=== PATIENT | female | born 1995 | race Caucasian/White ===

== ENCOUNTER → 2016-10-30 | Outpatient (CLI) | payer SELFPAY ==
--- OUTSIDE RECORDS SUMMARY | 2016-10-30 07:44 | XMS REPORT ---
Author Author ALEJANDRINA SUMNER Organization e[employer] Address Unknown Phone Unavailable Care Team Providers Care Amalgamator Name Role Phone ALEJANDRINA SUMNER CP Unavailable Allergies, Adverse Reactions, Alerts Substance Reaction Event Type Tomato anaphylaxis Non Drug Allergy Problems Problem Type Condition Code Onset Dates Condition Status Assessment Anxiety F41.9 Active Assessment Shortness of breath R06.02 Active Problem Unspecified viral infection, in conditions classified elsewhere and of unspecified site 079.99 Active Problem Unspecified infective otitis externa 380.10 Active Problem Other infective acute otitis externa of left ear H60.392 Active Problem Health examination of defined subpopulation V70.5 Active Assessment Tympanic membrane perforation, left H72.92 Active Problem Personal history of allergy to other foods V15.05 Active Problem Dysfunction of Eustachian tube 381.81 Active Medications Medication Code System Code Instructions Start Date End Date Status Dosage Lexapro [facility] [address]-69 20 mg Orally Once a day January 31, 2016 1 tablet BusPIRone HCl [facility] [address]-32 5 mg Orally 2 times a day March 13, 2016 3 tablets ProAir HFA [facility] [address]-15 108 (90 Base) MCG/ACT Inhalation every 4 hrs May 25, 2016 2 puffs as needed Nexplanon [facility] [address]-42 68 MG Subcutaneous not defined Procedures Procedure Coding System Code Date Office Visit, Est Pt., Level 3 CPT-4 32623 May 25, 2016 Vital Signs Date/Time: May 25, 2016 Cardiac Monitoring Heart Rate 86 bpm Weight 388.2 lbs Height 64 in BMI 66.63 Index Blood Pressure Diastolic 80 mmHg Blood Pressure Systolic 112 mmHg Results No Known Results Summary Purpose eClinicalWorks Submission
== END ==
LOC: RAD 07:41
PROVIDERS: ATTEND Nurse Practitioner Family
DX: R10.11 Right upper quadrant pain (principal); R19.8 Other specified symptoms and signs involving the digestive system and abdomen

== ENCOUNTER → 2016-10-31 | Outpatient (CLI) | payer OTHER ==
--- NOTE | 2016-10-31 09:26 | Diagnostic Imaging Report ---
PROCEDURE: US Gallbladder. TECHNIQUE: Multiple real-time grayscale images were obtained over the right upper quadrant in various projections. INDICATION: Right upper quadrant abdominal pain. FINDINGS: The liver has increased echogenicity suggesting fatty infiltration. The gallbladder is clear with no stones or wall thickening. The common duct is not dilated. The right kidney appears normal. There is no ascites. IMPRESSION: Hepatic steatosis. Negative gallbladder. Dictated by: Dictated on workstation # [id number]
== END ==
LOC: RAD 08:21
PROVIDERS: ATTEND Nurse Practitioner Family
DX: R10.11 Right upper quadrant pain (principal); R19.8 Other specified symptoms and signs involving the digestive system and abdomen
CPT/HCPCS: 76705

== ENCOUNTER 2017-06-27 09:20 | Observation (INO) | payer OTHER ==
[~2017-06-27] VITALS: Ht 165.1 cm; Wt 182.0 kg
[2017-06-27 10:09] VITALS: BP 178/102
[2017-06-27] MEDS ORDERED: AZITHROMYCIN INJECTION 500 MG in NS (IVPB) 250 ML IV NR (10:45)
[2017-06-27] MEDS ORDERED: NS IV 1000 ML 1,000 ML IV SCH (10:45)
[2017-06-27] MEDS ORDERED: cefTRIAXone INJECTION 1,000 MG in NS (IVPB) 50 ML IV SCH (10:45)
--- OUTSIDE RECORDS SUMMARY | 2017-06-27 10:54 | XMS REPORT ---
Author Author ALEJANDRINA SUMNER Organization [employer] Address Unknown Phone Unavailable Care Team Providers Care Non Destructive Evaluation Manager Name Role Phone ALEJANDRINA SUMNER CP Unavailable [...] Start Date End Date Status Dosage Lexapro [facility] [address]-16 20 mg Orally Once a day January 31, 2016 1 tablet BusPIRone HCl [facility] [address]-78 5 mg Orally 2 times a day March 13, 2016 3 tablets ProAir HFA [facility] [address]-90 108 (90 Base) MCG/ACT Inhalation every 4 hrs May 25, 2016 2 puffs as needed Nexplanon [facility] [address]-10 68 MG Subcutaneous not defined Procedures Procedure Coding System Code Date Office Visit, Est Pt., Level 3 CPT-4 52942 May 25, 2016 Vital Signs Date/Time: May 25, 2016 Cardiac Monitoring Heart Rate 86 bpm Weight 388.2 lbs Height 64 in BMI 66.63 Index Blood Pressure Diastolic 80 mmHg Blood Pressure Systolic 112 mmHg Results No Known Results Summary Purpose eClinicalWorks Submission
--- OUTSIDE RECORDS SUMMARY | 2017-06-27 10:54 | XMS REPORT ---
Author Author BRAULIO CABEZAS [facility] Address [address] [place] [address] Care Team Providers Care Watch Dial Maker Name Role Phone CABEZASBRAULIO Unavailable PROBLEMS Type Condition ICD9-CM Code [id number] Code Onset Dates Condition Status SNOMED Code Problem Mood disorder F39 Active 54851105 Problem Dysthymia F34.1 Active 80229615 Problem Mild intermittent asthma with acute exacerbation J45.21 Active 848204765 Problem Other infective acute otitis externa of left ear H60.392 Active 869303451 Problem Morbid obesity due to excess calories E66.01 Active 987802321 Problem Mild persistent asthma without complication J45.30 Active 717746042 ALLERGIES Substance Reaction Event Type Date Status Zoloft inc anxiety Drug Allergy Oct, Active Tomato anaphylaxis Non Drug Allergy Oct, Active SOCIAL HISTORY No smoking Hx information available PLAN OF CARE Activity Details Follow Up 4 Weeks Reason:dysthymia VITAL SIGNS Height 64 in 2016-10-25 Weight 401.2 lbs 2016-10-25 Temperature 98.4 degrees Fahrenheit 2016-10-25 Heart Rate 84 bpm 2016-10-25 Respiratory Rate 16 2016-10-25 BMI 68.86 kg/m2 2016-10-25 Blood pressure systolic 128 mmHg 2016-10-25 Blood pressure diastolic 72 mmHg 2016-10-25 MEDICATIONS Medication Instructions Dosage Frequency Start Date End Date Duration Status BusPIRone HCl 15 MG Orally 2 times a day 1tablets 12h Active Qvar 40 MCG/ACT Inhalation Twice a day 2 puff 12h Jun, Active ProAir HFA 108 (90 Base) MCG/ACT Inhalation every 4 hrs 2 puffs as needed 4h May, Active Cipro 500 MG Orally Twice a day 1 tablet 12h Oct, Oct, 10 day(s) Active Nexplanon 68 MG Active Clonazepam 0.5 MG Orally Twice a day as needed for panic attacks .5-1 tablet Aug, Active Venlafaxine HCl 75 MG Orally Twice a day 1 tablet with food 12h Active Ibuprofen 800 MG Orally Three times a day 1 tablet 8h 05 Apr, 2016 Active Cetirizine HCl 10 mg Orally Once a day 1 tablet 24h Sep, Active Metronidazole 500 MG Orally 3 times a day 1 tablet 8h Oct,Oct 07 days Active RESULTS No Results PROCEDURES Procedure Date Ordered Related Diagnosis Body Site Office Visit, Est Pt., Level 3 Oct 25, 2016 IMMUNIZATIONS No Known Immunizations
--- OUTSIDE RECORDS SUMMARY | 2017-06-27 10:54 | XMS REPORT ---
Author Author BRAULIO CABEZAS Organization [employer] Address Unknown Phone Unavailable Care Team Providers Care Food Analyst Name Role Phone BRAULIO CABEZAS CP Unavailable Allergies No Known Allergies Problems Problem Type Condition Code Onset Dates Condition Status Problem Unspecified viral infection, in conditions classified elsewhere and of unspecified site 079.99 Active Problem Unspecified infective otitis externa 380.10 Active Problem Other infective acute otitis externa of left ear H60.392 Active Problem Health examination of defined subpopulation V70.5 Active Problem Personal history of allergy to other foods V15.05 Active Problem Dysfunction of Eustachian tube 381.81 Active Medications Medication Code System Code Instructions Start Date End Date Status Dosage Ofloxacin [facility] [address]-37 0.3 % Otic twice a day April 24, 2016 May 04, 2016 10 drops into affected ear Results No Known Results Summary Purpose eClinicalWorks Submission
--- OUTSIDE RECORDS SUMMARY | 2017-06-27 10:54 | XMS REPORT ---
Author Author HANS CORDOBA Organization [facility] Address [address] [place] [address] Care Team Providers Care Moccasin Sewer Name Role Phone HANS CORDOBA Unavailable PROBLEMS Type Condition ICD9-CM Code [id number] Code Onset Dates Condition Status SNOMED Code Problem Mood disorder F39 Active 67298698 Problem Dysthymia F34.1 Active 04660762 Problem Mild intermittent asthma with acute exacerbation J45.21 Active 387118597 Problem Other infective acute otitis externa of left ear H60.392 Active 786444054 Problem Morbid obesity due to excess calories E66.01 Active 101588430 Problem Mild persistent asthma without complication J45.30 Active 031341881 ALLERGIES Substance Reaction Event Type Date Status Zoloft inc anxiety Drug Allergy Sep, Active Tomato anaphylaxis Non Drug Allergy Sep, Active SOCIAL HISTORY No smoking Hx information available PLAN OF CARE Activity Details Follow Up 2 - 3 Days Reason:if not improving VITAL SIGNS Height 64 in 2016-09-18 Weight 391.2 lbs 2016-09-18 Temperature 98.4 degrees Fahrenheit 2016-09-18 Heart Rate 94 bpm 2016-09-18 Respiratory Rate 20 2016-09-18 BMI 67.14 kg/m2 2016-09-18 Blood pressure systolic 120 mmHg 2016-09-18 Blood pressure diastolic 78 mmHg 2016-09-18 MEDICATIONS Medication Instructions Dosage Frequency Start Date End Date Duration Status Qvar 40 MCG/ACT Inhalation Twice a day 2 puff 12h Jun, Active ProAir HFA 108 (90 Base) MCG/ACT Inhalation every 4 hrs 2 puffs as needed 4h May, Active Cetirizine HCl 10 mg Orally Once a day 1 tablet 24h Sep, Active Venlafaxine HCl 37.5 MG Orally Twice a day 1 tablet with food 12h Aug, Active Tessalon Perles 100 MG Orally Three times a day prn at bedtime 1 capsule as needed Sep, Sep, 07 days Active Ibuprofen 800 MG Orally Three times a day 1 tablet 8h Apr, Active Lexapro 20 mg Orally Once a day 1 tablet 24h Jan, Active Clonazepam 0.5 MG Orally Twice a day as needed for panic attacks .5-1 tablet Aug, Active Nexplanon 68 MG Active BusPIRone HCl 5 mg Orally 2 times a day 3 tablets 12h Active Amoxicillin 500 MG Orally every 8 hrs 2 tablets 8h Sep, Sep, 7 days Active RESULTS No Results PROCEDURES Procedure Date Ordered Related Diagnosis Body Site Office Visit, Est Pt., Level 3 Sep 18, 2016 IMMUNIZATIONS No Known Immunizations
--- OUTSIDE RECORDS SUMMARY | 2017-06-27 10:55 | XMS REPORT ---
Author Author BRAULIO CABEZAS [facility] eClinicalWorks Address Unknown Phone Unavailable Care Team Providers Care Program Scheduler Name Role Phone BRAULIO CABEZAS CP Unavailable Allergies, Adverse Reactions, Alerts Substance Reaction Event Type Tomato anaphylaxis Non Drug Allergy Problems Problem Type Condition Code Onset Dates Condition Status Assessment Upper respiratory tract infection, unspecified type J06.9 Active Problem Other infective acute otitis externa of left ear H60.392 Active Problem Unspecified viral infection, in conditions classified elsewhere and of unspecified site 079.99 Active Problem Mild intermittent asthma with acute exacerbation J45.21 Active Problem Dysfunction of Eustachian tube 381.81 Active Problem Health examination of defined subpopulation V70.5 Active Problem Unspecified infective otitis externa 380.10 Active Problem Personal history of allergy to other foods V15.05 Active Medications Medication Code System Code Instructions Start Date End Date Status Dosage Qvar [facility] [address]-31 40 MCG/ACT Inhalation Twice a day Jun 26, 2016 2 puff Lexapro [facility] [address]-37 20 mg Orally Once a day January 31, 2016 1 tablet ProAir HFA [facility] [address]-82 108 (90 Base) MCG/ACT Inhalation every 4 hrs May 25, 2016 2 puffs as needed BusPIRone HCl [facility] [address]-69 5 mg Orally 2 times a day March 13, 2016 3 tablets Nexplanon [facility] [address]-15 68 MG Subcutaneous not defined Ibuprofen [facility] [address]-44 800 MG Orally Three times a day April 10, 2016 1 tablet Procedures Procedure Coding System Code Date STREP A ASSAY W/OPTIC CPT-4 29157 Jul 20, 2016 Office Visit, Est Pt., Level 3 CPT-4 75205 Jul 20, 2016 Vital Signs Date/Time: Jul 20, 2016 Cardiac Monitoring Heart Rate 94 bpm Weight 388.8 lbs Height 64 in BMI 66.73 Index Blood Pressure Diastolic 70 mmHg Blood Pressure Systolic 118 mmHg Results Name Result Date Reference Range Unit Abnormality Flag STREP A (IN HOUSE) ----STREP A neg [id number] ----Lot # [id number] ----Exp date [id number] Summary Purpose eClinicalWorks Submission
--- OUTSIDE RECORDS SUMMARY | 2017-06-27 10:55 | XMS REPORT ---
Author Author ALEJANDRINA SUMNER Organization [employer] Address Unknown Phone Unavailable Care Team Providers Care Radiology Specialist Name Role Phone ALEJANDRINA SUMNER CP Unavailable Allergies, Adverse Reactions, Alerts Substance Reaction Event Type Tomato anaphylaxis Non Drug Allergy Problems Problem Type Condition Code Onset Dates Condition Status Assessment Ruptured tympanic membrane, left H72.92 Active Problem Unspecified viral infection, in conditions classified elsewhere and of unspecified site 079.99 Active Problem Unspecified infective otitis externa 380.10 Active Problem Other infective acute otitis externa of left ear H60.392 Active Problem Health examination of defined subpopulation V70.5 Active Assessment Ear pain, left H92.02 Active Problem Personal history of allergy to other foods V15.05 Active Problem Dysfunction of Eustachian tube 381.81 Active Medications Medication Code System Code Instructions Start Date End Date Status Dosage Cortisporin [facility] [address]-94 3.5-69900-6 Otic 4 times a day April 10, 2016 4 drops into affected ear Nexplanon [facility] [address]-90 68 MG Subcutaneous not defined BusPIRone HCl [facility] [address]-74 5 mg Orally 2 times a day March 13, 2016 1 tablet Lexapro [facility] [address]-92 20 mg Orally Once a day January 31, 2016 1 tablet Ibuprofen [facility] [address]-90 800 MG Orally Three times a day April 10, 2016 1 tablet Amoxicillin [facility] [address]-06 500 MG Orally every 12 hrs April 17, 2016 April 27, 2016 2 tablet Procedures Procedure Coding System Code Date Office Visit, Est Pt., Level 3 CPT-4 69658 April 17, 2016 Vital Signs Date/Time: April 17, 2016 Cardiac Monitoring Heart Rate 88 bpm Weight 384.0 lbs Height 64 in BMI 65.91 Index Blood Pressure Diastolic 90 mmHg Blood Pressure Systolic 110 mmHg Results No Known Results Summary Purpose eClinicalWorks Submission
--- OUTSIDE RECORDS SUMMARY | 2017-06-27 10:55 | XMS REPORT ---
Author Author ALEJANDRINA SUMNER [facility] e[employer] Address Unknown Phone Unavailable Care Team Providers Care Furniture Rental Consultant Name Role Phone ALEJANDRINA SUMNER CP Unavailable Allergies No Known Allergies Problems Problem Type Condition Code Onset Dates Condition Status Problem Unspecified viral infection, in conditions classified elsewhere and of unspecified site 079.99 Active Problem Unspecified infective otitis externa 380.10 Active Problem Other infective acute otitis externa of left ear H60.392 Active Problem Health examination of defined subpopulation V70.5 Active Assessment Acute suppurative otitis media of left ear with spontaneous rupture of tympanic membrane, recurrence not specified H66.012 Active Problem Personal history of allergy to other foods V15.05 Active Problem Dysfunction of Eustachian tube 381.81 Active Medications No Known Medications Results No Known Results Summary Purpose eClinicalWorks Submission
--- OUTSIDE RECORDS SUMMARY | 2017-06-27 10:55 | XMS REPORT ---
Author Author ALEJANDRINA SUMNER [facility] Address [address] [place] [address] Care Team Providers Care Franchise Broker Name Role Phone ALEJANDRINA SUMNER Unavailable PROBLEMS Type Condition ICD9-CM Code GCQ43-UM Code Onset Dates Condition Status SNOMED Code Problem Health examination of defined subpopulation V70.5 Active 949893319 Problem Mild intermittent asthma with acute exacerbation J45.21 Active 320253466 Problem Other infective acute otitis externa of left ear H60.392 Active 199406839 Problem Personal history of allergy to other foods V15.05 Active 228935003 Problem Dysfunction of Eustachian tube 381.81 Active 65478409 Problem Unspecified viral infection, in conditions classified elsewhere and of unspecified site 079.99 Active 33107497 Problem Unspecified infective otitis externa 380.10 Active 74780715 ALLERGIES Unknown Allergies SOCIAL HISTORY No smoking Hx information available PLAN OF CARE VITAL SIGNS MEDICATIONS Medication Instructions Dosage Frequency Start Date End Date Duration Status Lexapro 20 mg Orally Once a day 1 tablet 24h Jan, 30 days Active RESULTS No Results PROCEDURES No Known procedures IMMUNIZATIONS No Known Immunizations
--- OUTSIDE RECORDS SUMMARY | 2017-06-27 10:55 | XMS REPORT ---
Author Author HANS CORDOBA [facility] Address [address] [place] [address] Care Team Providers Care Logistics Solution Manager Name Role Phone HANS CORDOBA Unavailable PROBLEMS Type Condition ICD9-CM Code DAH33-FY Code Onset Dates Condition Status SNOMED Code Problem Mood disorder F39 Active 57545157 Problem Dysthymia F34.1 Active 70550438 Problem Mild intermittent asthma with acute exacerbation J45.21 Active 456324347 Problem Other infective acute otitis externa of left ear H60.392 Active 091231868 Problem Morbid obesity due to excess calories E66.01 Active 950914787 Problem Mild persistent asthma without complication J45.30 Active 638211855 ALLERGIES Unknown Allergies SOCIAL HISTORY No smoking Hx information available PLAN OF CARE VITAL SIGNS MEDICATIONS Unknown Medications RESULTS Name Result Date Reference Range Ultrasound : Gallbladder 2016-10-31 PROCEDURES No Known procedures IMMUNIZATIONS No Known Immunizations
--- OUTSIDE RECORDS SUMMARY | 2017-06-27 10:55 | XMS REPORT ---
Author Author ALEJANDRINA SUMNER [facility] eClinicalWorks Address Unknown Phone Unavailable Care Team Providers Care Office Technology Professor Name Role Phone ALEJANDRINA SUMNER Unavailable Allergies No Known Allergies Problems Problem Type Condition Code Onset Dates Condition Status Problem Other infective acute otitis externa of [...] Instructions Start Date End Date Status Dosage BusPIRone HCl [facility] [address]-64 5 mg Orally 2 times a day March 13, 2016 3 tablets Results No Known Results Summary Purpose eClinicalWorks Submission
--- OUTSIDE RECORDS SUMMARY | 2017-06-27 10:55 | XMS REPORT ---
Author Author ALEJANDRINA SUMNER [facility] eClinicalWorks Address Unknown Phone Unavailable Care Team Providers Care Icing Machine Operator Name Role Phone ALEJANDRINA SUMNER CP Unavailable Allergies, Adverse Reactions, Alerts Substance Reaction Event Type Tomato anaphylaxis Non Drug Allergy Problems Problem Type Condition Code Onset Dates Condition Status Problem Unspecified infective otitis externa 380.10 Active Problem Personal history of allergy to other foods V15.05 Active Problem Unspecified viral infection, in conditions classified elsewhere and of unspecified site 079.99 Active Assessment Otitis media H66.90 Active Assessment Ear ache H92.09 Active Problem Dysfunction of Eustachian tube 381.81 Active Problem Health examination of defined subpopulation V70.5 Active Medications Medication Code System Code Instructions Start Date End Date Status Dosage ProAir HFA [facility] [address]-07 108 (90 Base) MCG/ACT Inhalation every 4 hrs, as needed only December 20, 2015 2 puffs as needed Lexapro [facility] [address]-35 20 mg Orally Once a day January 31, [address] [facility] [address]-58 68 MG Subcutaneous not defined Cipro HC [facility] [address]-82 0.2-1 % Otic Twice a day February 07, 2016 3 drops into affected ear Procedures Procedure Coding System Code Date Office Visit, Est Pt., Level 3 CPT-4 94214 February 07, 2016 Vital Signs Date/Time: February 07, 2016 Temperature 97.9 F Weight 367.4 lbs Height 64 in BMI 63.06 Index Blood Pressure Diastolic 70 mmHg Blood Pressure Systolic 116 mmHg Cardiac Monitoring Heart Rate 92 bpm Results No Known Results Summary Purpose eClinicalWorks Submission
--- OUTSIDE RECORDS SUMMARY | 2017-06-27 10:55 | XMS REPORT ---
Author Author BRAULIO CABEZAS Organization [employer] Address Unknown Phone Unavailable Care Team Providers Care Under Cutting Machine Operator Name Role Phone BRAULIO CABEZAS CP Unavailable Allergies, Adverse Reactions, Alerts Substance Reaction Event Type Tomato anaphylaxis Non Drug Allergy Problems Problem Type Condition Code Onset Dates Condition Status Problem Unspecified infective otitis externa 380.10 Active Problem Personal history of allergy to other foods V15.05 Active Problem Unspecified viral infection, in conditions classified elsewhere and of unspecified site 079.99 Active Assessment Acute recurrent maxillary sinusitis J01.01 Active Problem Dysfunction of Eustachian tube 381.81 Active Problem Health examination of defined subpopulation V70.5 Active Medications Medication Code System Code Instructions Start Date End Date Status Dosage Amoxicillin [facility] [address]-84 500 MG Orally every 12 hrs Jul 28, 2015 Aug 07, 2015 2 tablet Procedures Procedure Coding System Code Date Office Visit, Est Pt., Level 3 CPT-4 44640 Jul 28, 2015 Vital Signs Date/Time: Jul 28, 2015 Temperature 98.4 F Weight 341 lbs Height 64 in BMI 58.53 Index Blood Pressure Diastolic 80 mmHg Blood Pressure Systolic 124 mmHg Cardiac Monitoring Heart Rate 93 bpm Results No Known Results Summary Purpose eClinicalWorks Submission
--- OUTSIDE RECORDS SUMMARY | 2017-06-27 10:55 | XMS REPORT ---
Author Author BRAULIO CABEZAS Organization [employer] Address Unknown Phone Unavailable Care Team Providers Care Pediatric Genetic Counselor Name Role Phone BRAULIO CABEZAS CP Unavailable Allergies No Known Allergies Problems Problem Type Condition Code Onset Dates Condition Status Problem Unspecified infective otitis externa 380.10 Active Problem Personal history of allergy to other foods V15.05 Active Problem Unspecified viral infection, in conditions classified elsewhere and of unspecified site 079.99 Active Problem Dysfunction of Eustachian tube 381.81 Active Problem Health examination of defined subpopulation V70.5 Active Medications No Known Medications Results No Known Results Summary Purpose eClinicalWorks Submission
--- OUTSIDE RECORDS SUMMARY | 2017-06-27 10:55 | XMS REPORT ---
Author Author ALEJANDRINA SUMNER [facility] eClinicalWorks Address Unknown Phone Unavailable Care Team Providers Care Field Appraiser Name Role Phone ALEJANDRINA SUMNER CP Unavailable Allergies, Adverse Reactions, Alerts Substance Reaction Event Type Tomato anaphylaxis Non Drug Allergy Problems Problem Type Condition Code Onset Dates Condition Status Assessment Ear pain, left H92.02 Active Assessment Acute suppurative otitis media of left ear with spontaneous rupture of tympanic membrane, recurrence not specified H66.012 Active Problem Unspecified viral infection, in conditions classified elsewhere and of unspecified site 079.99 Active Problem Unspecified infective otitis externa 380.10 Active Problem Other infective acute otitis externa of left ear H60.392 Active Problem Health examination of defined subpopulation V70.5 Active Assessment Unspecified perforation of tympanic membrane, left ear H72.92 Active Problem Personal history of allergy to other foods V15.05 Active Problem Dysfunction of Eustachian tube 381.81 Active Medications Medication Code System Code Instructions Start Date End Date Status Dosage Ibuprofen [facility] [address]-59 800 MG Orally Three times a day April 10, 2016 1 tablet Lexapro [facility] [address]-30 20 mg Orally Once a day January 31, 2016 1 tablet BusPIRone HCl [facility] [address]-10 5 mg Orally 2 times a day March 13, 2016 1 tablet Nexplanon [facility] [address]-03 68 MG Subcutaneous not defined Procedures Procedure Coding System Code Date ROCEPHIN 1 GM (IM) CPT-4 J0696 May 01, 2016 THER/PROPH/DIAG INJ, SC/IM CPT-4 59592 May 01, 2016 Office Visit, Est Pt., Level 3 CPT-4 78270 May 01, 2016 TORADOL (IM) 60 MG/2ML (UP TO 15 MG) CPT-4 J1885 May 01, 2016 Vital Signs Date/Time: May 01, 2016 Cardiac Monitoring Heart Rate 88 bpm Weight 383.6 lbs Height 64 in Blood Pressure Diastolic 82 mmHg Blood Pressure Systolic 116 mmHg Results No Known Results Summary Purpose eClinicalWorks Submission
--- OUTSIDE RECORDS SUMMARY | 2017-06-27 10:55 | XMS REPORT ---
Author Author BRAULIO CABEZAS Organization [employer] Address Unknown Phone Unavailable Care Team Providers Care Supervisor Real Estate Office Name Role Phone BRAULIO CABEZAS CP Unavailable [...]
--- OUTSIDE RECORDS SUMMARY | 2017-06-27 10:55 | XMS REPORT ---
Author Author HANS CORDOBA Organization [facility] Address [address] [place] [address] Care Team Providers Care Tank Wagon Operator Name Role Phone HANS CORDOBA Unavailable PROBLEMS Type Condition ICD9-CM Code EVX16-DW Code Onset Dates Condition Status SNOMED Code Problem Mood disorder F39 Active 98293032 Problem Dysthymia F34.1 Active 26032066 Problem Mild intermittent asthma with acute exacerbation J45.21 Active 088948053 Problem Other infective acute otitis externa of left ear H60.392 Active 771172817 Problem Morbid obesity due to excess calories E66.01 Active 665426851 Problem Mild persistent asthma without complication J45.30 Active 908083234 ALLERGIES Substance Reaction Event Type Date Status Zoloft inc anxiety Drug Allergy Oct, Active Tomato anaphylaxis Non Drug Allergy Oct, Active SOCIAL HISTORY No smoking Hx information available PLAN OF CARE Activity Details Follow Up prn Reason:if not improving VITAL SIGNS Height 64 in 2016-10-22 Weight 402 lbs 2016-10-22 Temperature 97.9 degrees Fahrenheit 2016-10-22 Heart Rate 108 bpm 2016-10-22 Respiratory Rate 20 2016-10-22 BMI 69.00 kg/m2 2016-10-22 Blood pressure systolic 128 mmHg 2016-10-22 Blood pressure diastolic 80 mmHg 2016-10-22 MEDICATIONS Medication Instructions Dosage Frequency Start Date End Date Duration Status Metronidazole 500 MG Orally 3 times a day 1 tablet 8h Oct,Oct 07 days Active Nexplanon 68 MG Active Venlafaxine HCl 50 MG Orally Twice a day 1 tablet with food 12h Active Qvar 40 MCG/ACT Inhalation Twice a day 2 puff 12h 20 Jun, 2016 Active Clonazepam 0.5 MG Orally Twice a day as needed for panic attacks .5-1 tablet Aug, Active Cipro 500 MG Orally Twice a day 1 tablet 12h 16 Oct, 2016 Oct, 10 day(s) Active Cetirizine HCl 10 mg Orally Once a day 1 tablet 24h 13 Sep, 2016 Active BusPIRone HCl 15 MG Orally 2 times a day 1tablets 12h Active Hydrocodone-Acetaminophen 7.5-325 MG Orally every 6 hrs 1 tablet as needed 6h Oct, Oct, 0 days Active Ibuprofen 800 MG Orally Three times a day 1 tablet 8h Apr, Active ProAir HFA 108 (90 Base) MCG/ACT Inhalation every 4 hrs 2 puffs as needed 4h May, Active RESULTS No Results PROCEDURES Procedure Date Ordered Related Diagnosis Body Site Office Visit, Est Pt., Level 3 Oct 22, 2016 TORADOL (IM) 60 MG/2ML (UP TO 15 MG) Oct 22, 2016 THER/PROPH/DIAG INJ, SC/IM Oct 22, 2016 IMMUNIZATIONS Vaccine Route Administration Date Status TORADOL (IM) 60 MG/2ML (UP TO 15 MG) IM Intramuscular Oct 22, 2016 Administered
--- OUTSIDE RECORDS SUMMARY | 2017-06-27 10:55 | XMS REPORT ---
Author Author BRAULIO CABEZAS Organization [employer] Address Unknown Phone Unavailable Care Team Providers Care Solutions Development Analyst Name Role Phone BRAULIO CABEZAS CP [...] examination of defined subpopulation V70.5 Active Assessment Other infective acute otitis externa of left ear H60.392 Active Problem Personal history of allergy to other foods V15.05 Active Problem Dysfunction of Eustachian tube 381.81 Active Medications Medication Code System Code Instructions Start Date End Date Status Dosage Ibuprofen [facility] [address]-40 800 MG Orally Three times a day April 10, 2016 1 tablet BusPIRone HCl [facility] [address]-66 5 mg Orally 2 times a day March 13, 2016 1 tablet Cortisporin [facility] [address]-58 3.5-90411-3 Otic 4 times a day April 10, 2016 4 drops into affected ear Lexapro [facility] [address]-22 20 mg Orally Once a day January 31, 2016 1 tablet Procedures Procedure Coding System Code Date Office Visit, Est Pt., Level 3 CPT-4 92487 April 10, 2016 Vital Signs Date/Time: April 10, 2016 Cardiac Monitoring Heart Rate 80 bpm Weight 281.0 lbs Height 64 in Blood Pressure Diastolic 72 mmHg Blood Pressure Systolic 120 mmHg Results No Known Results Summary Purpose [employer] Submission
--- OUTSIDE RECORDS SUMMARY | 2017-06-27 10:56 | XMS REPORT ---
Author Author BRAULIO CABEZAS [facility] Address [address] [place] [address] Care Team Providers Care Barrer And Tacker Name Role Phone CABEZASBRAULIO Unavailable PROBLEMS Type Condition ICD9-CM Code LAA85-KC Code Onset Dates Condition Status SNOMED Code Problem Health examination of defined subpopulation V70.5 Active 844981453 Assessment Mild intermittent asthma with acute exacerbation J45.21 Jun Active 491238873 Problem Mild intermittent asthma with acute exacerbation J45.21 Active 685803296 Problem Other infective acute otitis externa of left ear H60.392 Active 251023209 Problem Personal history of allergy to other foods V15.05 Active 146045225 Problem Dysfunction of Eustachian tube 381.81 Active 56724628 Problem Unspecified viral infection, in conditions classified elsewhere and of unspecified site 079.99 Active 68580418 Problem Unspecified infective otitis externa 380.10 Active 55611726 ALLERGIES Substance Reaction Event Type Date Status Tomato anaphylaxis Non Drug Allergy Jun, Active SOCIAL HISTORY No smoking Hx information available PLAN OF CARE VITAL SIGNS Height 64 in 2016-06-26 Weight 392.0 lbs 2016-06-26 Heart Rate 90 bpm 2016-06-26 Respiratory Rate 18 2016-06-26 BMI 67.28 kg/m2 2016-06-26 Blood pressure systolic 120 mmHg 2016-06-26 Blood pressure diastolic 62 mmHg 2016-06-26 MEDICATIONS Medication Instructions Dosage Frequency Start Date End Date Duration Status Lexapro 20 mg Orally Once a day 1 tablet 24h Jan, 30 days Active Nexplanon 68 MG Active Qvar 40 MCG/ACT Inhalation Twice a day 2 puff 12h Jun, Active PredniSONE 10 MG Orally 2 per day 1 tablet with food or milk Jun, Jun, 05 days Active BusPIRone HCl 5 mg Orally 2 times a day 3 tablets 12h 07 Mar, 2016 Active ProAir HFA 108 (90 Base) MCG/ACT Inhalation every 4 hrs 2 puffs as needed 4h May, Active Ibuprofen 800 MG Orally Three times a day 1 tablet 8h Apr, Active RESULTS No Results PROCEDURES Procedure Date Ordered Related Diagnosis Body Site Office Visit, Est Pt., Level 3 Jun 26, 2016 IMMUNIZATIONS No Known Immunizations
--- OUTSIDE RECORDS SUMMARY | 2017-06-27 10:56 | XMS REPORT | Continuity of Care Document ---
Author Author [facility] Address Unknown Phone Unavailable Allergies Active Description Code Type Severity Reaction Onset Reported/Identified Relationship to Patient Clinical Status Yes TOMATO Food Allergy N/A N/A 03/29/2014 Medications Problems Date Dx Coded Attending Type Code Diagnosis Diagnosed By 06/29/2011 V74.1 SCREENING EXAMINATION FOR PULMONARY TUBERCULOSIS 06/29/2011 DE OLIVEIRA ROMEL SIMMSA K V74.1 SCREENING EXAMINATION FOR PULMONARY TUBERCULOSIS 06/29/2011 YENNIFER SIMMS KYLEIGH K V74.1 SCREENING EXAMINATION FOR PULMONARY TUBERCULOSIS 06/29/2011 DE OLIVEIRA DO KYLEIGH K V74.1 SCREENING EXAMINATION FOR PULMONARY TUBERCULOSIS 06/29/2011 ROMEL DE OLIVEIRA DOA K V74.1 SCREENING EXAMINATION FOR PULMONARY TUBERCULOSIS 06/29/2011 YENNIFER SIMMS KYLEIGH K V74.1 SCREENING EXAMINATION FOR PULMONARY TUBERCULOSIS 09/28/2011 V06.1 TDAP DX 09/28/2011 DE OLIVEIRA DO KYLEIGH K V06.1 TDAP DX 09/28/2011 DE OLIVEIRA DO KYLEIGH K V06.1 TDAP DX 09/28/2011 DE OLIVEIRA DO KYLEIGH K V06.1 TDAP DX 09/28/2011 DE OLIVEIRA DO KYLEIGH K V06.1 TDAP DX 09/28/2011 DE OLIVEIRA DO KYLEIGH K V06.1 TDAP DX 12/31/2011 V70.5 PREEMPLOYMENT/PRESCHOOL EXAM 12/31/2011 DE OLIVEIRA DO KYLEIGH K V70.5 PREEMPLOYMENT/PRESCHOOL EXAM 12/31/2011 DE OLIVEIRA DO KYLEIGH K V70.5 PREEMPLOYMENT/PRESCHOOL EXAM 12/31/2011 DE OLIVEIRA DO KYLEIGH K V70.5 PREEMPLOYMENT/PRESCHOOL EXAM 12/31/2011 DE OLIVEIRA DO KYLEIGH K V70.5 PREEMPLOYMENT/PRESCHOOL EXAM 12/31/2011 DE OLIVEIRA DO KYLEIGH K V70.5 PREEMPLOYMENT/PRESCHOOL EXAM 05/31/2012 381.81 EUSTACHIAN TUBE DYSFUNCTION 05/31/2012 786.2 cough 05/31/2012 DE OLIVEIRA DO, KYLEIGH K 381.81 EUSTACHIAN TUBE DYSFUNCTION 05/31/2012 DE OLIVEIRA DO, KYLEIGH K 786.2 cough 05/31/2012 DE OLIVEIRA DO, KYLEIGH K 381.81 EUSTACHIAN TUBE DYSFUNCTION 05/31/2012 DE OLIVEIRA DO, KYLEIGH K 786.2 cough 05/31/2012 DE OLIVEIRA DO, KYLEIGH K 381.81 EUSTACHIAN TUBE DYSFUNCTION 05/31/2012 DE OLIVEIRA DO, KYLEIGH K 786.2 cough 05/31/2012 DE OLIVEIRA DO, KYLEIGH K 381.81 EUSTACHIAN TUBE DYSFUNCTION 05/31/2012 DE OLIVEIRA DO, KYLEIGH K 786.2 cough 05/31/2012 DE OLIVEIRA DO, KYLEIGH K 381.81 EUSTACHIAN TUBE DYSFUNCTION 05/31/2012 DE OLIVEIRA DO, KYLEIGH K 786.2 cough 08/05/2012 462 ACUTE PHARYNGITIS 08/05/2012 DE OLIVEIRA DO, KYLEIGH K 462 ACUTE PHARYNGITIS 08/05/2012 DE OLIVEIRA DO, KYLEIGH K 462 ACUTE PHARYNGITIS 08/05/2012 DE OLIVEIRA DO, KYLEIGH K 462 ACUTE PHARYNGITIS 08/05/2012 DE OLIVEIRA DO, KYLEIGH K 462 ACUTE PHARYNGITIS 08/05/2012 DE OLIVEIRA DO, KYLEIGH K 462 ACUTE PHARYNGITIS 03/29/2014 DE OLIVEIRA DO, KYLEIGH K V15.05 PERSONAL HISTORY OF ALLERGY TO OTHER FOODS 03/29/2014 DE OLIVEIRA DO, KYLEIGH K V15.05 PERSONAL HISTORY OF ALLERGY TO OTHER FOODS 03/29/2014 DE OLIVEIRA DO, KYLEIGH K V15.05 PERSONAL HISTORY OF ALLERGY TO OTHER FOODS 03/29/2014 DE OLIVEIRA DO, KYLEIGH K V15.05 PERSONAL HISTORY OF ALLERGY TO OTHER FOODS 03/29/2014 DE OLIVEIRA DO, KYLEIGH K V15.05 PERSONAL HISTORY OF ALLERGY TO OTHER FOODS 07/26/2014 DE OLIVEIRA DO, KYLEIGH K 380.10 INFECTIVE OTITIS EXTERNA UNSPECIFIED 07/26/2014 DE OLIVEIRA DO, KYLEIGH K 380.10 INFECTIVE OTITIS EXTERNA UNSPECIFIED 07/26/2014 DE OLIVEIRA DO, KYLEIGH K 380.10 INFECTIVE OTITIS EXTERNA UNSPECIFIED 09/08/2014 DE OLIVEIRA DO, KYLEIGH K 460 ACUTE NASOPHARYNGITIS (COMMON COLD) 09/08/2014 DE OLIVEIRA DO, KYLEIGH K 460 ACUTE NASOPHARYNGITIS (COMMON COLD) 09/22/2014 DE OLIVEIRA DO, KYLEIGH K 079.99 VIRAL SYNDROME 09/22/2014 KYLEIGH DE OLIVEIRA DO 466.0 BRONCHITIS, ACUTE Procedures Code Description [place] [address] THERAPUTIC INJ SQ/IM 03/29/2014 J0702 BETAMETHASONE ACET&SOD PHOSP 03/29/2014 J3301 KENALOG INJ, PER 10 MG 03/29/2014 03730 STREP A (IN-HOUSE) 06/25/2014 02479 CULTURE THROAT 09114 INFLUENZA A & B (IN-HOUSE) 09/22/2014 Results Encounters ACCT No. Visit Date/Time Discharge Status Pt. Type Provider Facility Loc./Unit Complaint [id number] 09/22/2014 13:37:00 09/22/2014 23: 59:59 CLS Outpatient KYLEIGH DE OLIVEIRA DO [id number] 09/08/2014 15:06:00 09/08/2014 23: 59:59 CLS Outpatient KYLEIGH DE OLIVEIRA DO [id number] 07/26/2014 14:57:00 07/26/2014 23: 59:59 CLS Outpatient KYLEIGH DE OLIVEIRA DO [id number] 06/25/2014 14:38:00 06/25/2014 23: 59:59 CLS Outpatient KYLEIGH DE OLIVEIRA DO [id number] 03/29/2014 11:35:00 03/29/2014 23: 59:59 [place] [id number] 08/05/2012 11:37:00 08/05/2012 23: 59:59 CLS Outpatient
--- OUTSIDE RECORDS SUMMARY | 2017-06-27 10:56 | XMS REPORT ---
Author Author BRAULIO CABEZAS [facility] Address [address] [place] [address] Care Team Providers Care Chaser Helper Name Role Phone BRAULIO CABEZAS Unavailable PROBLEMS Type Condition ICD9-CM Code [id number] Code Onset Dates Condition Status SNOMED Code Problem Mood disorder F39 Active 60711969 Problem Dysthymia F34.1 Active 85646764 Problem Mild intermittent asthma with acute exacerbation J45.21 Active 870915546 Problem Other infective acute otitis externa of left ear H60.392 Active 014677103 Problem Morbid obesity due to excess calories E66.01 Active 451474130 Problem Mild persistent asthma without complication J45.30 Active 200303434 ALLERGIES Substance Reaction Event Type Date Status Zoloft inc anxiety Drug Allergy Sep, Active Tomato anaphylaxis Non Drug Allergy Sep, Active SOCIAL HISTORY No smoking Hx information available PLAN OF CARE Activity Details Follow Up 4 Weeks Reason:depression VITAL SIGNS Height 64 in 2016-09-24 Weight 396.2 lbs 2016-09-24 Temperature 97.5 degrees Fahrenheit 2016-09-24 Heart Rate 89 bpm 2016-09-24 Respiratory Rate 20 2016-09-24 BMI 68.00 kg/m2 2016-09-24 Blood pressure systolic 128 mmHg 2016-09-24 Blood pressure diastolic 76 mmHg 2016-09-24 MEDICATIONS Medication Instructions Dosage Frequency Start Date End Date Duration Status Cetirizine HCl 10 mg Orally Once a day 1 tablet 24h Sep, Active Nexplanon 68 MG Active Amoxicillin 500 MG Orally every 8 hrs 2 tablets 8h Sep, Sep, 7 days Active Clonazepam 0.5 MG Orally Twice a day as needed for panic attacks .5-1 tablet Aug, Active BusPIRone HCl 15 MG Orally 2 times a day 1tablets 12h Active Venlafaxine HCl 50 MG Orally Twice a day 1 tablet with food 12h Active Qvar 40 MCG/ACT Inhalation Twice a day 2 puff 12h Jun, Active Tessalon Perles 100 MG Orally Three times a day prn at bedtime 1 capsule as needed Sep, Sep, 07 days Active ProAir HFA 108 (90 Base) MCG/ACT Inhalation every 4 hrs 2 puffs as needed 4h May, Active Ibuprofen 800 MG Orally Three times a day 1 tablet 8h Apr, Active RESULTS No Results PROCEDURES Procedure Date Ordered Related Diagnosis Body Site Office Visit, Est Pt., Level 3 Sep 24, 2016 IMMUNIZATIONS No Known Immunizations
--- OUTSIDE RECORDS SUMMARY | 2017-06-27 10:56 | XMS REPORT ---
Author Author ALEJANDRINA SUMNER [facility] [employer] Address Unknown Phone Unavailable Care Team Providers Care Journal Entry Audit Clerk Name Role Phone ALEJANDRINA SUMNER Unavailable Allergies No Known Allergies Problems Problem Type Condition Code Onset Dates Condition Status Problem Unspecified viral infection, in conditions classified elsewhere and of unspecified site 079.99 Active Problem Unspecified infective otitis externa 380.10 Active Problem Other infective acute otitis externa of left ear H60.392 Active Problem Health examination of defined subpopulation V70.5 Active Assessment Anxiety F41.9 Active Problem Personal history of allergy to other foods V15.05 Active Problem Dysfunction of Eustachian tube 381.81 Active Medications Medication Code System Code Instructions Start Date End Date Status Dosage BusPIRone HCl [facility] [address]-18 5 mg Orally 2 times a day March 13, 2016 1 tablet Results No Known Results Summary Purpose [employer] Submission
--- OUTSIDE RECORDS SUMMARY | 2017-06-27 10:56 | XMS REPORT ---
Author Author HANS STARR [facility] [employer] Address Unknown Phone Unavailable Care Team Providers Care Caustic Room Operator Name Role Phone HANS STARR CP Unavailable Allergies, Adverse Reactions, Alerts Substance Reaction Event Type Tomato anaphylaxis Non Drug Allergy Problems Problem Type Condition Code Onset Dates Condition Status Assessment Anxiety F41.9 Active Problem Dysfunction of Eustachian tube 381.81 Active Problem Health examination of defined subpopulation V70.5 Active Problem Morbid obesity due to excess calories E66.01 Active Problem Mild intermittent asthma with acute exacerbation J45.21 Active Problem Mild persistent asthma without complication J45.30 Active Problem Unspecified infective otitis externa 380.10 Active Problem Personal history of allergy to other foods V15.05 Active Problem Other infective acute otitis externa of left ear H60.392 Active Problem Unspecified viral infection, in conditions classified elsewhere and of unspecified site 079.99 Active Assessment Screening for thyroid disorder Z13.29 Active Assessment Morbid obesity due to excess calories E66.01 Active Assessment Mild persistent asthma without complication J45.30 Active Medications Medication Code System Code Instructions Start Date End Date Status Dosage ProAir HFA [facility] [address]-66 108 (90 Base) MCG/ACT Inhalation every 4 hrs May 25, 2016 2 puffs as needed BusPIRone HCl [facility] [address]-14 5 mg Orally 2 times a day 3 tablets Lexapro [facility] [address]-03 20 mg Orally Once a day January 31, 2016 1 tablet Qvar [facility] [address]-01 40 MCG/ACT Inhalation Twice a day Jun 26, 2016 2 puff Ibuprofen [facility] [address]-75 800 MG Orally Three times a day April 10, 2016 1 tablet Nexplanon [facility] [address]-72 68 MG Subcutaneous not defined Procedures Procedure Coding System Code Date Office Visit, Est Pt., Level 4 CPT-4 11884 Aug 08, 2016 Vital Signs Date/Time: Aug 08, 2016 Cardiac Monitoring Heart Rate 89 bpm Weight 396.2 lbs Height 64 in BMI 68.00 Index Blood Pressure Diastolic 70 mmHg Blood Pressure Systolic 120 mmHg Results No Known Results Summary Purpose [employer]Works Submission
--- OUTSIDE RECORDS SUMMARY | 2017-06-27 10:56 | XMS REPORT ---
Author Author ALEJANDRINA SUMNER [facility] [employer] Address Unknown Phone Unavailable Care Team Providers Care Elementary Teacher Name Role Phone ALEJANDRINA SUMNER CP Unavailable Allergies, Adverse Reactions, Alerts Substance Reaction Event Type Tomato anaphylaxis Non Drug Allergy Problems Problem Type Condition Code Onset Dates Condition Status Assessment Fever R50.9 Active Problem Unspecified infective otitis externa 380.10 Active Problem Personal history of allergy to other foods V15.05 Active Problem Unspecified viral infection, in conditions classified elsewhere and of unspecified site 079.99 Active Assessment Right otitis media with effusion H65.91 Active Assessment Cough R05 Active Problem Dysfunction of Eustachian tube 381.81 Active Problem Health examination of defined subpopulation V70.5 Active Medications Medication Code System Code Instructions Start Date End Date Status Dosage Medrol (Inder) NDC [address]-97 4 MG Orally Aug 30, 2015 take each days dose at one time daily Amoxicillin-Pot Clavulanate NDC [address]-72 875-125 MG Orally every 12 hrs Aug 30, 2015 Sep 09, 2015 1 tablet Ptaggnegds-Laylzcwxtb-Rfawwmm NDC 0 5.4-1.4-0.0097 % Otic every 2 hrs Aug 30, 2015 1 drop into affected ear as needed Procedures Procedure Coding System Code Date Office Visit, Est Pt., Level 3 CPT-4 61880 Aug 30, 2015 MEASURE BLOOD OXYGEN LEVEL CPT-4 46921 Aug 30, 2015 Vital Signs Date/Time: Aug 30, 2015 Temperature 98.9 F Weight 345.2 lbs Height 64 in Oximetry 99 % Blood Pressure Diastolic 68 mmHg Blood Pressure Systolic 120 mmHg Cardiac Monitoring Heart Rate 77 bpm BMI 59.25 Index Results No Known Results Summary Purpose [employer]ClinicalWorks Submission
--- OUTSIDE RECORDS SUMMARY | 2017-06-27 10:56 | XMS REPORT ---
Author Author BRAULIO CABEZAS [facility] Address [address] [place] [address] Care Team Providers Care Humanities Coordinator Name Role Phone CABEZASBRALUIO Unavailable PROBLEMS Type Condition ICD9-CM Code WGY72-MB Code Onset Dates Condition Status SNOMED Code Problem Dysfunction of Eustachian tube 381.81 Active 94990233 Problem Unspecified infective otitis externa 380.10 Active 45662767 Problem Personal history of allergy to other foods V15.05 Active 969630377 Assessment Dysthymia F34.1 Aug, Active 74138000 Problem Health examination of defined subpopulation V70.5 Active 117122041 Problem Dysthymia F34.1 Active 05600945 Problem Mild persistent asthma without complication J45.30 Active 132048923 Problem Other infective acute otitis externa of left ear H60.392 Active 343490879 Problem Unspecified viral infection, in conditions classified elsewhere and of unspecified site 079.99 Active 64102657 Problem Morbid obesity due to excess calories E66.01 Active 890257460 Problem Mild intermittent asthma with acute exacerbation J45.21 Active 007400743 ALLERGIES Substance Reaction Event Type Date Status Zoloft inc anxiety Drug Allergy Aug, Active Tomato anaphylaxis Non Drug Allergy Aug, Active SOCIAL HISTORY No smoking Hx information available PLAN OF CARE VITAL SIGNS Height 64 in 2016-08-21 Weight 387 lbs 2016-08-21 Heart Rate 100 bpm 2016-08-21 Respiratory Rate 20 2016-08-21 BMI 66.42 kg/m2 2016-08-21 Blood pressure systolic 120 mmHg 2016-08-21 Blood pressure diastolic 70 mmHg 2016-08-21 MEDICATIONS Medication Instructions Dosage Frequency Start Date End Date Duration Status Nexplanon 68 MG Active Ibuprofen 800 MG Orally Three times a day 1 tablet 8h 05 Apr, 2016 Active Venlafaxine HCl 37.5 MG Orally Twice a day 1 tablet with food 12h Aug, Active ProAir HFA 108 (90 Base) MCG/ACT Inhalation every 4 hrs 2 puffs as needed 4h May, Active BusPIRone HCl 5 mg Orally 2 times a day 3 tablets 12h Active Lexapro 20 mg Orally Once a day 1 tablet 24h Jan, Active Qvar 40 MCG/ACT Inhalation Twice a day 2 puff 12h 20 Jun, 2016 Active Clonazepam 0.5 MG Orally Twice a day as needed for panic attacks .5-1 tablet Aug, Active RESULTS No Results PROCEDURES Procedure Date Ordered Related Diagnosis Body Site Office Visit, Est Pt., Level 3 Aug 21, 2016 IMMUNIZATIONS No Known Immunizations
[2017-06-27] MEDS ORDERED: NS IV 1000 ML 1,000 ML IV ONE (11:07)
[2017-06-27 11:16] LABS: BASOPHILS # (AUTO) 0.1 10^3/uL (0.0-0.1); BASOPHILS % (AUTO) 1 % (0-10); EOSINOPHILS # (AUTO) 0.2 10^3/uL (0.0-0.3); EOSINOPHILS % (AUTO) 3 % (0-10); LYMPHOCYTES # (AUTO) 1.6 X 10^3 (1.0-4.0); LYMPHOCYTES % (AUTO) 23 % (12-44); MEAN CORPUSCULAR HEMOGLOBIN 27 PG (25-34); MEAN CORPUSCULAR HGB CONC 31 G/DL (32-36); MEAN CORPUSCULAR VOLUME 85 FL (80-99); MEAN PLATELET VOLUME 11.1 FL (7.4-10.4); MONOCYTES # (AUTO) 0.7 X 10^3 (0.0-1.0); MONOCYTES % (AUTO) 11 % (0-12); NEUTROPHILS # (AUTO) 4.3 X 10^3 (1.8-7.8); NEUTROPHILS % (AUTO) 62 % (42-75); PLATELET COUNT 293 10^3/uL (130-400); RED BLOOD COUNT 4.99 10^6/uL (4.35-5.85); RED CELL DISTRIBUTION WIDTH 15.9 % (10.0-14.5); WHITE BLOOD COUNT 6.9 10^3/uL (4.3-11.0)
[2017-06-27 11:25] LABS: ALANINE AMINOTRANSFERASE 32 U/L (0-55); ALBUMIN 3.9 GM/DL (3.2-4.5); ANION GAP 10 MMOL/L (5-14); ASPARTATE AMINO TRANSFERASE 25 U/L (5-34); BILIRUBIN,TOTAL 0.3 MG/DL (0.1-1.0); BLOOD UREA NITROGEN 11 MG/DL (7-18); BUN/CREATININE RATIO 12; CALCIUM 8.8 MG/DL (8.5-10.1); CARBON DIOXIDE 23 MMOL/L (21-32); CHLORIDE 104 MMOL/L (98-107); GFR ESTIMATED > 60; GLUCOSE 104 MG/DL (70-105); POTASSIUM 3.8 MMOL/L (3.6-5.0); SODIUM 137 MMOL/L (135-145); TOTAL PROTEIN 7.7 GM/DL (6.4-8.2); hs C REACTIVE PROTEIN 0.94 MG/DL (0.00-0.50)
[2017-06-27] MEDS ORDERED: RT-ALBUINH IH (11:39)
[2017-06-27] MEDS ORDERED: BUSP15TA60 PO (11:39)
[2017-06-27] MEDS ORDERED: CLON0.5T3 PO (11:39)
[2017-06-27] MEDS ORDERED: IBUP-1780 PO (11:39)
[2017-06-27] MEDS ORDERED: CETI10TA20 PO (11:39)
[2017-06-27] MEDS ORDERED: ESCI10TA PO (11:39)
[2017-06-27] MEDS ORDERED: BECL8.7A7 IH (11:39)
[2017-06-27 11:46] LABS: THYROID STIMULATING HORMONE 5.17 UIU/ML (0.35-4.94)
[2017-06-27 12:24] LABS: BILIRUBIN,URINE NEGATIVE (NEGATIVE); KETONES,URINE NEGATIVE (NEGATIVE); LEUKOCYTE ESTERASE ,URINE NEGATIVE (NEGATIVE); NITRITE,URINE NEGATIVE (NEGATIVE); PH,URINE 6 (5-9); PROTEIN,URINE NEGATIVE (NEGATIVE); UROBILINOGEN,URINE 1 MG/DL (NORMAL)
[2017-06-27 12:33] LABS: SQUAMOUS EPITHELIAL CELL,UR 0-2 /HPF
[2017-06-27] MEDS: RT-ALBUTEROL SULF 2.5 MG/3 ML PRE-MIX VIAL IH SCH ×3 (12:39→22:00)
--- NOTE | 2017-06-27 12:48 | Diagnostic Imaging Report ---
PA and lateral views of the chest Indication: Cough. Tachycardia. Findings: The lungs are clear. The heart size is normal. There is no effusion or pneumothorax The mediastinum and lala appear unremarkable. Impression: Unremarkable study. Dictated by: Dictated on workstation # [id number]
[2017-06-27] MEDS: NS IV 1000 ML 1,000 ML IV SCH ×2 (14:17→19:43)
[2017-06-27] MEDS ORDERED: clonazePAM 0.5 MG (KlonoPIN) TAB PO PRN (15:45)
[2017-06-27 16:25] VITALS: BP 170/94
[2017-06-27 18:40] VITALS: BP 164/93
[2017-06-27] MEDS: busPIRone 15 MG (BUSPAR) TABLET PO SCH (19:42)
[2017-06-27 20:30] VITALS: BP 148/72
[2017-06-27] MEDS ORDERED: IBUPROFEN 800 MG (MOTRIN) TAB PO PRN (20:45)
[2017-06-27] MEDS ORDERED: BENZONATATE 100 MG (TESSALON) CAPSULE PO PRN (23:45)
[2017-06-28 00:50] VITALS: BP 148/78
[2017-06-28] MEDS: RT-ALBUTEROL SULF 2.5 MG/3 ML PRE-MIX VIAL IH SCH ×3 (02:56→09:57)
[2017-06-28 04:38] VITALS: BP 133/73
[2017-06-28 05:37] LABS: MEAN PLATELET VOLUME 10.7 FL (7.4-10.4); RED BLOOD COUNT 4.48 10^6/uL (4.35-5.85)
[2017-06-28 05:48] LABS: ANION GAP 9 MMOL/L (5-14); BLOOD UREA NITROGEN 7 MG/DL (7-18); BUN/CREATININE RATIO 11; CALCIUM 8.1 MG/DL (8.5-10.1); CARBON DIOXIDE 22 MMOL/L (21-32); CHLORIDE 108 MMOL/L (98-107); CREATININE SERUM 0.66 MG/DL (0.60-1.30); GFR ESTIMATED > 60; GLUCOSE 110 MG/DL (70-105); MAGNESIUM 2.1 MG/DL (1.8-2.4); POTASSIUM 3.6 MMOL/L (3.6-5.0); SODIUM 139 MMOL/L (135-145); hs C REACTIVE PROTEIN 0.58 MG/DL (0.00-0.50)
[2017-06-28] MEDS: NS IV 1000 ML 1,000 ML IV SCH (05:54)
[2017-06-28 08:00] VITALS: BP 140/84
[2017-06-28] MEDS ORDERED: RT-FLUTICASONE 110 MCG (FLOVENT) PER PUFF INH SCH (08:00)
[2017-06-28] MEDS: busPIRone 15 MG (BUSPAR) TABLET PO SCH (08:31)
[2017-06-28] MEDS ORDERED: AZITHROMYCIN INJECTION 250 MG in NS (IVPB) 250 ML IV SCH (09:00)
[2017-06-28] MEDS ORDERED: LORATADINE (CLARITIN) 10 MG TAB PO SCH (09:00)
[2017-06-28] MEDS ORDERED: BENZ-36 PO (10:38)
--- NOTE | 2017-06-28 10:39 | Discharge Instructions ---
Discharge [facility] Discharge Medications New, Converted or Re-Newed RX: Transmitted to Pharmacy New Medications: Benzonatate (Benzonatate) 100 Mg Capsule 100 MG PO TID PRN for COUGH, #30 CAP 0 Refills Continued Medications: Albuterol Sulfate (Ventolin Hfa) 1 Puff Puff 2 PUFF IH Q4H PRN for SHORTNESS OF BREATH, INHALER 1 PUFF = 90 MCG Beclomethasone Dipropionate (Qvar) 8.7 Gm Aer.w.adap 2 PUFF IH BID, INHALER Buspirone HCl (Buspirone HCl) 15 Mg Tablet 15 MG PO TID, TAB Cetirizine HCl (Zyrtec) 10 Mg Tablet 10 MG PO DAILY, TAB Clonazepam (Clonazepam) 0.5 Mg Tablet 0.25 MG PO BID PRN for ANXIETY, TAB TAKES 1/2 (0.5MG) TABLET Escitalopram Oxalate (Lexapro) 10 Mg Tablet 10 MG PO DAILY, TAB Ibuprofen (Ibuprofen) 800 Mg Tablet 800 MG PO TID PRN for PAIN-MILD, TAB Patient Instructions Goal/Follow Up Appt: Follow up with Dr. Arevalo at [facility] in [place] on 07/02 at 2:20 pm. Return to The [facility] For: Fever, worsening shortness of breath, palpitations, chest pain Activity & Diet Discharge Diet: Regular Diet Activity as Tolerated: Yes Orders-Post D/C & Referrals Pneu Vac Indicated: Yes Copy Copies To 1: WM BOYCE BETHANY N MD Jun 28, 2017 10:39 am
--- NOTE | 2017-06-28 10:42 | Short Stay Summary ---
HPI History of Present Illness: 22 yo female sent from clinic for observation due to fever, cough, shortness of breath and tachycardia x 3 days with suspected pneumonia. Negative flu testing in clinic as well as negative strep test. Patient also reports diarrhea. She has asthma and has been using her albuterol and Qvar with minimal relief of symptoms. Date seen by provider: Jun 28, 2017 Time Seen by Provider: 10:15 Attending Physician Katalina Arevalo MD PCP Nati Hopkins DO Consult Date of Admission Jun 27, 2017 at 10:02 Home Medications Home Medications Reviewed patient Home Medication Reconciliation Form Allergies Coded Allergies: tomato (Verified Allergy, Unknown, 06/27/17) sertraline (Verified Adverse Reaction, Unknown, increased anxiety, 06/27/17 ) [id number] Hx Patient Social History Alcohol Use: Denies Use Recreational Drug Use: No Smoking Status: Never a Smoker Recent Foreign Travel: No Contact w/other who traveled: No Recent Hopitalizations: No Recent Infectious Disease Expo: No Physical Abuse Screen: No Sexual Abuse: No Past Medical History PMHx: Anxiety Asthma PSurgHx: Tonsillectomy Family Medical History Significant Family History: No Pertinent Family Hx Family History: Review of Systems ([facility]) Constitutional: chills, fever Respiratory: cough, dyspnea on exertion Cardiovascular: No chest pain Gastrointestinal: abdominal pain, diarrhea, nausea, No vomiting Genitourinary: no symptoms reported Musculoskeletal: no symptoms reported Skin: no symptoms reported Psychiatric/Neurological: Anxiety Reviewed Test Results Reviewed Test Results Lab Laboratory Tests Test 06/27/17 10:45 06/27/17 11:00 06/28/17 05:10 Range/Units White Blood Count 6.9 6.0 4.3-11.0 10^3/uL Red Blood Count 4.99 4.48 4.35-5.85 10^6/uL Hemoglobin 13.2 11.8 11.5-16.0 G/DL Hematocrit 42 38 35-52 % Mean Corpuscular Volume 85 85 80-99 FL Mean Corpuscular Hemoglobin 27 26 25-34 PG Mean Corpuscular Hemoglobin Concent 31 L 31 L 32-36 G/DL Red Cell Distribution Width 15.9 H 16.0 H 10.0-14.5 % Platelet Count 293 247 130-400 10^3/uL Mean Platelet Volume 11.1 H 10.7 H 7.4-10.4 FL Neutrophils (%) (Auto) 62 42-75 % Lymphocytes (%) (Auto) 23 12-44 % Monocytes (%) (Auto) 11 0-12 % Eosinophils (%) (Auto) 3 0-10 % Basophils (%) (Auto) 1 0-10 % Neutrophils # (Auto) 4.3 1.8-7.8 X 10^3 Lymphocytes # (Auto) 1.6 1.0-4.0 X 10^3 Monocytes # (Auto) 0.7 0.0-1.0 X 10^3 Eosinophils # (Auto) 0.2 0.0-0.3 10^3/uL Basophils # (Auto) 0.1 0.0-0.1 10^3/uL Sodium Level 137 139 135-145 MMOL/L Potassium Level 3.8 3.6 3.6-5.0 MMOL/L Chloride Level 104 108 H 98-107 MMOL/L Carbon Dioxide Level 23 22 21-32 MMOL/L Anion Gap 10 9 5-14 MMOL/L Blood Urea Nitrogen 11 7 7-18 MG/DL Creatinine 0.90 0.66 0.60-1.30 MG/DL Estimat Glomerular Filtration Rate > 60 > 60 BUN/Creatinine Ratio 12 11 Glucose Level 104 110 H 70-105 MG/DL Lactic Acid Level 1.51 0.50-2.00 MMOL/L Calcium Level 8.8 8.1 L 8.5-10.1 MG/DL Magnesium Level 2.0 2.1 1.8-2.4 MG/DL Total Bilirubin 0.3 0.1-1.0 MG/DL Aspartate Amino Transf (AST/SGOT) 25 5-34 U/L Alanine Aminotransferase (ALT/SGPT) 32 0-55 U/L Alkaline Phosphatase 109 40-136 U/L C-Reactive Protein High Sensitivity 0.94 H 0.58 H 0.00-0.50 MG/DL Total Protein 7.7 6.4-8.2 GM/DL Albumin 3.9 3.2-4.5 GM/DL Thyroid Stimulating Hormone (TSH) 5.17 H 0.35-4.94 UIU/ML Urine Color YELLOW Urine Clarity CLEAR Urine pH 6 5-9 Urine Specific [place] 1.020 1.016-1.022 Urine Protein NEGATIVE NEGATIVE Urine Glucose (UA) NEGATIVE NEGATIVE Urine Ketones NEGATIVE NEGATIVE Urine Nitrite NEGATIVE NEGATIVE Urine Bilirubin NEGATIVE NEGATIVE Urine Urobilinogen 1 NORMAL MG/DL Urine Leukocyte Esterase NEGATIVE NEGATIVE Urine RBC (Auto) NEGATIVE NEGATIVE Urine RBC NONE /HPF Urine WBC NONE /HPF Urine Squamous Epithelial Cells 0-2 /HPF Urine Crystals NONE /LPF Urine Bacteria NEGATIVE /HPF Urine Casts NONE /LPF Urine Mucus NEGATIVE /LPF Urine Culture Indicated NO Radiology CXR 06/27: Unremarkable Physical Exam-([facility]) Physical Exam Vital Signs VS - Last 72 Hours, by Label 06/27/17 06/27/17 06/27/17 06/27/17 10:09 12:39 15:13 16:25 Temp 101.2 98.4 Pulse 115 115 Resp 18 20 B/P (MAP) 178/102 170/94 Pulse Ox 91 98 94 O2 Delivery Room Air Room Air Room Air Room Air 06/27/17 06/27/17 06/27/17 06/27/17 18:40 19:28 20:30 21:00 Temp 98.7 Pulse 94 115 96 Resp 22 B/P (MAP) 164/93 148/72 Pulse Ox 92 O2 Delivery Room Air Room Air Room Air 06/27/17 06/28/17 06/28/17 06/28/17 22:00 00:48 00:50 02:56 Temp 98.8 Pulse 126 101 Resp 18 B/P (MAP) 148/78 Pulse Ox 92 94 92 O2 Delivery Room Air Room Air Room Air 06/28/17 06/28/17 06/28/17 04:38 07:08 08:00 Temp 97.8 98.2 Pulse 99 88 Resp 18 24 B/P (MAP) 133/73 140/84 Pulse Ox 93 92 96 O2 Delivery Room Air Room Air Room Air Capillary Refill : Less Than 3 Seconds General Appearance: no apparent distress, obese Respiratory: chest non-tender, lungs clear Cardiovascular: regular rate, rhythm, no murmur Gastrointestinal: normal bowel sounds, non tender, soft Extremities: no pedal edema Neurologic/Psychiatric: alert, normal mood/affect Skin: normal color, warm/dry Short Stay Diagnosis Discharge Diagnosis-Short Stay Admission Diagnosis Fever Tachycardia Asthma Anxiety Final Discharge Diagnosis Fever- no sepsis criteria otherwise met, chest x-ray unremarkable, cough likely due to viral infection and improved greatly with tessalon perles Tachycardia- improved with IVF, but still intermittently present, first EKG machine read atrial flutter but was poor quality with low voltage and repeat EKG normal. Note that HR intermittently elevated in clinic, recommend outpatient Holter as next evaluation Asthma- resumed home inhalers, no hypoxia or wheezing Anxiety- resumed home medications Elevated TSH- TSH minimally elevated, needs repeat with T4 outpatient Conclusion Plan See discharge diagnosis Clinical Quality Measures DVT/VTE Risk/Contraindication: Risk Factor Score Per Nursin RFS Level Per Nursing on Admit: 3=High Copy Copies To 1: MW BOYCE BETHANY N MD Jun 28, 2017 10:42
== END 2017-06-28 10:38 | disposition home or self-care (01) ==
LOC: UNDOADMOB 10:02 → 4TH 10:02 → UNDODISOB 06-28 11:24
PROVIDERS: ADMIT Family Medicine; ATTEND Family Medicine
DX: R50.9 Fever, unspecified (principal); R00.0 Tachycardia, unspecified; J45.909 Unspecified asthma, uncomplicated; F41.9 Anxiety disorder, unspecified; R74.0 Nonspecific elevation of levels of transaminase and lactic acid dehydrogenase [LDH]
CPT/HCPCS: 36415; 71020; 80048; 80053; 81000; 83605; 83735; 84145; 84443; 85025; 85027; 86141; 87040; 93005; 94640; 94760; 99211; G0378